=== PATIENT | male | born 1995 | race Caucasian/White ===

== ENCOUNTER 2021-01-06 22:32 | Inpatient (IN) | payer OTHER ==
[~2021-01-06] VITALS: Ht 182.9 cm; Wt 99.8 kg
[2021-01-06 23:21] LABS: HEMOGLOBIN 12.2 gm/dl (14.0-17.5); RED BLOOD COUNT 4.58 M/UL (4.20-5.50); WHITE BLOOD COUNT 17.3 K/UL (4.5-11.0)
[2021-01-06 23:41] LABS: BUN/CREATININE RATIO 6 (0-10)
[2021-01-07 09:39] LABS: ADENOVIRUS F 40/41 Not Detected (Negative); ASTROVIRUS Not Detected (Negative); CAMPYLOBACTER Not Detected (Negative); CLOSTRIDIUM DIFFICILE TOX A/B Not Detected (Negative); CRYPTOSPORIDIUM Not Detected (Negative); E.COLI 0157 Not Detected (Negative); ENTAMOEBA HISTOLYTICA Not Detected (Negative); ENTEROAGGREGATIVE E.COLI (EAEC Not Detected (Negative); ENTEROPATHOGENIC E.COLI (EPEC) Not Detected (Negative); ENTEROTOXIGENIC E.COLI (ETEC) Not Detected (Negative); GIARDIA LAMBLIA Not Detected (Negative); NOROVIRUS GI/GII Not Detected (Negative); PLESIOMONAS SHIGELLOIDES Not Detected (Negative); ROTOVIRUS A Not Detected (Negative); SALMONELLA Not Detected (Negative); SAPOVIRUS Not Detected (Negative); SHIG/ENTEROINVAS.ECOLI (EIEC) Not Detected (Negative); SHIGA-LIK TOX.PRO.E.COLI (STEC Not Detected (Negative); VIBRIO Not Detected (Negative); VIBRIO CHOLERAE Not Detected (Negative); YERSINIA ENTEROCOLITICA Not Detected (Negative)
[2021-01-08 06:46] LABS: HEMOGLOBIN 9.3 gm/dl (14.0-17.5); RED BLOOD COUNT 3.62 M/UL (4.20-5.50); WHITE BLOOD COUNT 10.2 K/UL (4.5-11.0)
[2021-01-08 07:17] LABS: BUN/CREATININE RATIO 7 (0-10)
[2021-01-08] MEDS ORDERED: MEDROL DOSEPAK 24 MG PO ×2 (15:12→15:23)
[2021-01-08] MEDS ORDERED: METRONIDAZOLE500 MG PO (15:12)
[2021-01-08] MEDS ORDERED: LEVOFLOXACIN750 MG PO (15:12)
[2021-01-08] MEDS ORDERED: PREDNISONE 20 M20 MG PO ×2 (15:12→15:23)
[2021-01-08] MEDS ORDERED: PROTONIX 40 MG40 M1 PO (15:12)
[2021-01-08] MEDS ORDERED: K-TAB ER20 MEQ PO (15:12)
[2021-01-09 08:29] LABS: HEMOGLOBIN 8.7 gm/dl (14.0-17.5); RED BLOOD COUNT 3.34 M/UL (4.20-5.50); WHITE BLOOD COUNT 9.9 K/UL (4.5-11.0)
[2021-01-09 08:59] LABS: BUN/CREATININE RATIO 7 (0-10)
[2021-01-09] MEDS ORDERED: PERCOCET 5/325 T1 EA PO ×3 (15:08→16:02)
[2021-01-09] MEDS ORDERED: ZOFRAN 4 MG TAB4 MG PO (15:58)
== END 2021-01-09 18:07 | disposition home or self-care (01) | DRG 872 ==
LOC: ER1 22:32 → CDU 01-07 02:48 → MED SURG 4 01-07 02:48
PROVIDERS: Internal Medicine; Physician Assistant; ADMIT Internal Medicine
DX: A41.9 Sepsis, unspecified organism (principal); E87.1 Hypo-osmolality and hyponatremia; D62 Acute posthemorrhagic anemia; K51.00 Ulcerative (chronic) pancolitis without complications; E87.2 Acidosis; Z20.822 Contact with and (suspected) exposure to COVID-19; E87.6 Hypokalemia; I10 Essential (primary) hypertension; Z83.79 Family history of other diseases of the digestive system
CPT/HCPCS: 36415; 80048; 80053; 81001; 83605; 83690; 83735; 84100; 85025; 85027; 85610; 85652; 85730; 86140; 87507; 93005; 96365; 96375; 99285; J1720; J1885; J2270; J2405; J2543; J7030; Q9967; U0002

== ENCOUNTER → 2021-03-03 | Day surgery (SDC) | payer OTHER ==
[~2021-03-03] MED LIST: K-TAB ER20 MEQ PO; LEVOFLOXACIN750 MG PO; MEDROL DOSEPAK 24 MG PO; METRONIDAZOLE500 MG PO; PERCOCET 5/325 T1 EA PO; PREDNISONE 20 M20 MG PO; PROTONIX 40 MG40 M1 PO; ZOFRAN 4 MG TAB4 MG PO
== END | disposition home or self-care (01) ==
LOC: OR 03-02 07:30
DX: K62.5 Hemorrhage of anus and rectum (principal); D12.4 Benign neoplasm of descending colon; D12.5 Benign neoplasm of sigmoid colon; D50.0 Iron deficiency anemia secondary to blood loss (chronic); K51.00 Ulcerative (chronic) pancolitis without complications; E66.8 Other obesity; K64.1 Second degree hemorrhoids; K64.4 Residual hemorrhoidal skin tags; Z72.89 Other problems related to lifestyle; Z20.822 Contact with and (suspected) exposure to COVID-19
CPT/HCPCS: J2250; J2704; J7040; U0002